=== PATIENT | female | born 1975 | race Caucasian/White ===

== ENCOUNTER → 2018-03-28 02:40 | Outpatient (CLI) | payer BC, SELFPAY ==
[2018-03-28 08:32] LABS: Ferritin 20 ng/mL (8-388); TSH 2.43 uIU/mL (0.358-3.74)
== END ==
PROVIDERS: PCP Emergency Medicine; Visit Provider Emergency Medicine
DX: L65.9 Nonscarring hair loss, unspecified (principal)
CPT/HCPCS: 36415; 82728; 84443

== ENCOUNTER 2018-08-19 14:14 | Outpatient (REF) | payer BC, SELFPAY ==
--- NOTE | 2018-08-19 13:30 | PAPFT_PTH ---
PATIENT: Fina Burnham LOC: [facility] U#:[id number] AGE/SX: 43/F ROOM: RE08/19/[address]: MAUREEN Hernandez : 1975 BED: DIS: 08/19/2018 SPEC #: [id number] RECD: 08/19/18 17:32 STATUS: ANATOLY REReuben #: [id number] SURINDER: 08/19/18 13:[address]: Dari Simmons DEPT: [facility] Cytology RECD BY: Dionne Vitale ENTERED: 08/19/18 17:32 SP TYPE: PAPFT OTHR DR: Gabino Ignacio, Tissues: 1 - CX/ENDOCX FOR PAP SMEARS Procedures: PAP THIN PREP/[facility] Screening HPV DNA PROBE Comments: [id number]
== END 2018-08-19 14:34 ==
LOC: LBN 14:14
PROVIDERS: PCP Emergency Medicine; Visit Provider Nurse Practitioner Family
DX: Z12.4 Encounter for screening for malignant neoplasm of cervix (principal); Z11.51 Encounter for screening for human papillomavirus (HPV)
CPT/HCPCS: 88142; 87624

== ENCOUNTER 2020-11-09 09:01 | Outpatient (CLI) | payer OTHER, SELFPAY ==
[2020-11-10 18:00] LABS: COVID-19 RT-PCR UVMMC Result Negative (Negative)
== END 2020-11-09 09:02 | disposition home or self-care (01) ==
PROVIDERS: PCP Emergency Medicine; Visit Provider Emergency Medicine
DX: Z20.822 Contact with and (suspected) exposure to COVID-19 (principal)
CPT/HCPCS: U0003

== ENCOUNTER 2022-05-02 03:03 | Outpatient (CLI) | payer BC, SELFPAY ==
[2022-05-02 08:35] LABS: Calculated LDL 94 mg/dL (<100); Cholesterol 194 mg/dL (<200); HDL Cholesterol 91 mg/dL (40-60); Triglyceride 47 mg/dL (<150)
[2022-05-03 10:09] LABS: HIV-1/2 Ag & Ab Screen Negative (Negative)
[2022-05-03 10:26] LABS: Hepatitis C Ab w Rflx HCV PCR Negative (Negative)
== END 2022-05-02 03:04 | disposition home or self-care (01) ==
LOC: LBO 03:03
PROVIDERS: PCP Family Medicine; Visit Provider Family Medicine
DX: Z00.00 Encounter for general adult medical examination without abnormal findings (principal); Z13.220 Encounter for screening for lipoid disorders; Z11.4 Encounter for screening for human immunodeficiency virus [HIV]; Z11.59 Encounter for screening for other viral diseases
CPT/HCPCS: 36415; 80061; 86803; 87389

== ENCOUNTER → 2023-03-22 03:05 | Outpatient (CLI) | payer BC, SELFPAY ==
--- NOTE | 2023-03-22 13:36 | DI.RAD_ITS ---
Exam(s) XR CHEST 2V PA LATERAL EXAM: XR CHEST 2V PA LATERAL CLINICAL HISTORY: cough,R05.3 TECHNIQUE: 2D digital imaging was performed. COMPARISON: No exams were available for comparison FINDINGS: HEART: Normal size. Aorta: Not dilated. PULMONARY VASCULATURE: Normal. LUNGS: Clear. PLEURAL SPACE: No pleural effusion or pneumothorax. BONE:Unremarkable for age. Mild pectus excavatum deformity. IMPRESSION: No acute abnormality. DATA REPOSITORY: RADIATION DOSE DELIVERED:
== END ==
PROVIDERS: PCP Family Medicine; Visit Provider Family Medicine
DX: R05.3 Chronic cough (principal)
CPT/HCPCS: 71046

== ENCOUNTER 2023-05-24 13:38 | Outpatient (CLI) | payer BC, SELFPAY ==
[2023-05-24 13:38] LABS: HCT 39.6 % (36.0-46.0); HGB 12.6 g/dL (11.2-15.7); MCH 28.1 pg (27.0-33.0); MCHC 31.8 % (32.0-36.0); MCV 88 fL (80-95); MPV 9.5 fL (8.0-11.0); Platelet Count 346 10^3/uL (130-400); RBC 4.48 10^6/uL (3.93-5.22); RDW 13.2 % (11.7-14.6); RDW-SD 42.7 fL
[2023-05-24 15:15] LABS: ALT 23 U/L (14-59); AST 15 U/L (15-37); Albumin 4.2 g/dL (3.4-5.0); Alkaline Phosphatase 50 U/L (46-116); Anion Gap 11.3 mmol/L (3-11); BUN 8 mg/dL (7-18); Bilirubin, Total 0.2 mg/dL (0.2-1.0); CO2 26.7 mmol/L (21.0-32.0); CREATININE 0.7 mg/dL (0.55-1.02); Calcium 9.3 mg/dL (8.5-10.1); Chloride 104 mmol/L (98-107); Estimated GFR 106.62 (mL/min/1.73m2); Glucose 90 mg/dL (74-106); Potassium 3.9 mmol/L (3.5-5.1); Sodium 142 mmol/L (136-145); Total Protein 8.2 g/dL (6.4-8.2)
== END 2023-05-24 13:39 | disposition home or self-care (01) ==
LOC: LBO 13:39
PROVIDERS: PCP Family Medicine; Visit Provider Surgery
DX: R05.3 Chronic cough (principal); F41.9 Anxiety disorder, unspecified; K58.9 Irritable bowel syndrome, unspecified
CPT/HCPCS: 36415; 80053; 85027

== ENCOUNTER 2023-07-10 12:24 | Day surgery (SDC) | payer BC, SELFPAY ==
--- NOTE | 2023-07-09 20:27 | HPE_ITS ---
Date of service: 07/10/23 Time of Service: 13:26 Assessment and Plan Assessment and plan (1) Irritable colon: (2) Panic disorder: (3) Screening for malignant neoplasm of colon performed: Status: Acute (4) Colon cancer screening: Status: Acute Assessment and plan: Plan: Colonoscopy w/ general & natural airway. Informed consent is obtained for the procedural (explained in simple layman's terms that?the pt and/or family could understand) explaining risks vs benefits and alternatives to the procedure and consequences if we do not do the procedure and need/rational for the procedure. Risks include but are not limited to: bleeding, infection, perforation of colon.? This would necessitate emergency surgery to repair the damage w/ possible ostomy; and other associated complications w/ the required surgery. ? Also complications of anesthesia including aspiration, PR/CVA/, inability to complete the procedure. I discussed with the?patient would they could expect during the procedure, post procedure and recovery time and risks.? The patient understands that they need to have a ride home after the procedure.? History of Present Illness Narrative: Patient is here today for colonoscopy for CRC screening.??? They completed a bowel prep with just a clear yellow residual effluent.? They not having any chest pain or shortness of breath, currently.? They are not experiencing any fever or chills.? They deny any productive cough or upper respiratory tract infection signs or symptoms.? They are not having abdominal pain, or nausea and vomiting.? They have not had any changes in medications, past medical history or past surgical history since previously being seen in the office. They have not had any accidents or have been in the ER since the clinic pre-operative evaluation. ??I reviewed the procedure with the patient today, including risks and benefits of the procedure, and what they could expect at home for recovery.? All questions are answered to the patient?s satisfaction today, and they are stable to proceed with the proposed procedure. Pt seen at the request of PCP regarding colon cancer screening. Pt has never had colon cancer screening before.? They denies problems with constipation or diarrhea.? They deny any pain or difficulty with bowel movements, or rectal bleeding.? There is no family history of any colon cancer.? Pt has not had any unexplained weight loss.? Their appetite is good.? ?They deny heart, lung, or kidney problems. They are not having heartburn or indigestion. They have not had any prior colo-rectal surgery.? The patient has not had a prior CARLOS.? They deny any problems with anesthesia in the past. Anesthesia: general (without airway) Previous surgical intolerances: No Previous surgical complications: No Pulmonary risk factors: Planned procedure: Yes Sleep apnea risks: No COPD/Asthma/Smoker: no Can climb one flight of stairs (12-13 steps) in less than 30 seconds without stopping and without symptoms: Yes The surgery proposed for this patient is: low risk Active cardiac conditions: none Active risk factors: none ASA (acetylsalicylic acid): not used Beta blockers: not used Kidneys: no concerns DM: no ?PSHx: CE ORIF arm Anesthesia Review of Systems All systems reviewed & are unremarkable except as noted in HPI and below PFSH All Active Problems Colon cancer screening (Acute) Screening for malignant neoplasm of colon performed (Acute) Chronic cough (Chronic) Anxiety (Acute) Medical History Hx of fracture of arm History of cervical dysplasia (1994) History of fracture of skull as a child, no complications Panic disorder (05/30/11) Irritable colon Surgical History S/P LEEP (1994) Colonoscopy - [facility] [place] 02/2010 Family History Mother No problems noted. Social History Smoking/Tobacco Use Status: Former Tobacco Use tobacco type: cigarettes Quit Date: 08/06/02 Tobacco: How many years used: 20 Smoking risk assessment performed?: Yes Alcohol Intake: current Alcohol Intake frequency: a few times a month Drug use: Never Substance use type: does not use Caregiver/Support person: No Household members: spouse and children Housing: house Number of Children: 2 Do you need help understanding health information?: Never current occupation: works in an office. Pets and animals: Yes Pets and animals: dog(s) Sexually active: No Do you think of yourself as: straight/heterosexual Current gender identity: female What is your relationship status?: How often do you talk on the phone with friends or family?: three or more times per week How often do you get together with friends or relatives?: twice per week How often do you attend faith or confucianist services?: 1-3 times per year Do you belong to any clubs or organized social groups?: yes Panel score (0-1 are the most socially isolated patients): 3 What type of physical activity do you participate in: bicycling Duration: 30-45 minutes/day Frequency: 1-2 times per week Kelly/Nondenominational: Zoroastrianism Seatbelt use: always Helmet use: No Drive intox or ride w/intox 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 Do you feel safe at home: Yes Do you feel safe in your relationship?: Yes Female Reproductive History Menstrual control method: permanent sterilization (Vasectomy) History History 2 Para 2 Hx # Term Pregnancies Multiple births Hx # Pregnancies Ectopic pregnancies AB induced Hx Number of Living Children AB spontaneous Meds Allergies and Home Medications Allergies Allergy/AdvReac Type Severity Reaction Status Date / Time Sulfa (Sulfonamide Allergy Intermediate RASH Verified 07/10/23 12:54 Antibiotics) guaifenesin Allergy Unknown SOB Verified 07/10/23 12:54 phenylephrine Allergy Unknown SOB Verified 07/10/23 12:54 phenylpropanolamine Allergy Unknown Verified 07/10/23 12:54 Corticosteroids AdvReac MAKES HER Verified 07/10/23 12:54 (Glucocorticoids) HYPER Home Medications Medication Instructions Recorded Confirmed Type lorazepam 0.5 mg tablet 0.5 mg PO BID PRN anxiety #30 tabs 01/11/23 07/10/23 Rx valacyclovir 1 gram tablet 1,000 mg PO ONCE PRN 03/09/23 07/10/23 History multivitamin 1 tab PO DAILY 05/24/23 07/10/23 History Exam Narrative Exam Narrative: PHYSICAL EXAM GENERAL APPEARANCE: Alert, healthy appearance, oriented, x 3,? in no acute distress HYDRATION: Well hydrated HEAD, EYES, EARS, NECK, THROAT: Head is normocephalic, pupils equal, round, reactive to light and accommodation, ocular movement intact, sclera clear and no jaundice. ?Dentition intact. LUNGS: normal respiration/normal chest excursion. ?Clear to auscultation bilaterally. ?No wheeze. ?HEART: Regular rate and rhythm. no murmurs ABDOMEN: soft and non-tender to palpation.? Normal bowel sounds. Time Spent Time spent with Patient: <40 minutes Time was spent: preparing to see the patient(eg.review tests), obtaining and/or reviewing separately otained hiistory, ordering medications,tests, procedures, referring, communicating with other health sub acute care nurse, indepentently interpreting results, counseling the patient and care coordination
--- NOTE | 2023-07-09 20:35 | W.PM.DSUDISC ---
Date of service: 07/10/23 Time of Service: 14:13 Discharge Plan Disposition Patient Disposition: Home Condition: Good Discharge Details Reason For Visit: colon scope Attending Provider: Chloé Poon Primary Care Provider: Skylar De Leon Home Meds and New Rx's Prescriptions: Continued multivitamin Tablet 1 tab PO DAILY valacyclovir 1 gram tablet 1,000 mg PO ONCE PRN Patient Comments: TAKE ONE TABLET BY MOUTH TWICE A DAY FOR 7 DAYS lorazepam 0.5 mg tablet 0.5 mg PO BID PRN (Reason: anxiety) Qty: 30 1RF Discontinued polyethylene glycol 3350 17 gram/dose powder 238 g PO ONCE Qty: 238 0RF Rx Instructions: take per colonoscopy instructions bisacodyl [Dulcolax (bisacodyl)] 5 mg tablet,delayed release (DR/EC) 5 mg PO ONCE Qty: 4 0RF Rx Instructions: take per colonoscopy instructions Discharge Instructions Additional Instructions: DSU Colonoscopy Post-Op Instructions Instructions for Everyone who is given Anesthesia: For your safety, please do the following for the next twenty-four (24) hours: *Do Not operate a motor vehicle (car, truck, motorcycle, etc.) *Do Not drink alcoholic beverages or use any recreational drugs for the first 24 hours or while taking pain medications. The medications in your body may have a reaction that can be dangerous. *Do Not make any important decisions or sign any important papers. Findings: Moderate diverticula of the sigmoid colon. Make sure you are moving your bowels on a regular basis and not straining to go to the bathroom. If you find you are having issues with constipation/straining, that is recommended that you start a fiber supplement such as Metamucil. X1 small polyp Follow up: My office will send you a letter in 2 to 3 weeks time with the results of the pathology and when we want you to repeat your colonoscopy. 1. No lifting over 20 pounds or strenuous activity for the first 24 hours after your procedure. After 24 hours there are no restrictions on your activity but you may feel fatigued for a few days. 2. After you arrive home you may have a light meal and return to your normal diet as you can tolerate it without feeling sick to your stomach. 3. You may have a bloated, gaseous feeling in your belly (abdomen) after a colonoscopy. Passing gas and belching will help. Walking or lying down on your left side with your knees flexed may relieve the discomfort. Call the office at [phone] (Office) or [phone] (Hospital) right away if you notice any of the following: a.Vomiting of blood or ?coffee ground stools?. b.Rectal bleeding 1Tbsp, blood clots or continuous bleeding. c.Severe belly (abdominal) pain. d.A hard distended belly (abdomen) and an inability to pass gas. 4. Please don?t expect to have a normal BM (bowel movement) for 2-3 days after your procedure. 5. If there are questions regarding the findings of your procedure, please contact your doctor 6. If you are unable to contact your doctor with a problem, contact the hospital at [phone]. 7. Continue all your regular medications unless directed otherwise. I understand the above instructions and have no questions. Signature of Patient or Adult Escort Name of Responsible Adult Escort Signature of Nurse Date/Time Activity:: see above Diet:: see above Discharge Orders Discharge Orders: Discharge Order (Routine); Ordered 07/10/23 Ordered By: Chloé Poon DS: Diagnosis Discharge Diagnosis (1) Irritable colon: (2) Panic disorder: (3) Screening for malignant neoplasm of colon performed: Status: Acute Asessment and Plan: Post [place] Note/Eval The patient is seen and examined after their colonoscopy.? The patient has been able to pass gas.? They are not having abdominal pain.? They have been able to tolerate liquids and a snack.? They do not have any nausea or vomiting.? They are not having any chest pain or shortness of breath.??? They are not having any rectal bleeding. Their vital signs have been stable-see nursing notes. We discussed findings during their colonoscopy, and any biopsies that were done/polyps that were removed. The patient will be sent a letter with any biopsy results, and when to repeat the colonoscopy.-see discharge instructions. Patient was given explicit instructions to follow-up regarding colonoscopy-refer to discharge instructions.? We reviewed resumption of medications. Patient verbalized understanding and discharged in stable and satisfactory condition- See nursing notes. (4) Diverticula of colon: Status: Acute
--- NOTE | 2023-07-10 12:20 | W.ANESPRE ---
General Info Date of Service Date Performed: 07/10/23 Height: 5 ft 3 in Weight: 58.74 kg Body Mass Index (BMI): 22.9 Surgical Procedure: Operation Date: 07/10/23 12:20 Proposed Procedure Side Surgeon qing Poon, DO Meds Allergies and Home Medications Allergies Allergy/AdvReac Type Severity Reaction Status Date / Time Sulfa (Sulfonamide Allergy Intermediate RASH Verified 07/10/23 12:54 Antibiotics) guaifenesin Allergy Unknown SOB Verified 07/10/23 12:54 phenylephrine Allergy Unknown SOB Verified 07/10/23 12:54 phenylpropanolamine Allergy Unknown Verified 07/10/23 12:54 Corticosteroids AdvReac MAKES HER Verified 07/10/23 12:54 (Glucocorticoids) HYPER Home Medication Medication Instructions Recorded lorazepam 0.5 mg tablet 0.5 mg PO BID PRN anxiety #30 tabs 01/11/23 valacyclovir 1 gram tablet 1,000 mg PO ONCE PRN 03/09/23 multivitamin 1 tab PO DAILY 05/24/23 Current Visit Medications: Current Medications Generic Name Dose Route Start Last Admin Trade Name Freq PRN Reason Stop Dose Admin Hyoscyamine Sulfate 0.125 mg 07/10/23 02:52 Hyoscyamine 0.125 Mg Sl/Oral/Chew SL 08/09/23 02:51 DIRECTED PRN Ringer's Solution 1,000 mls @ 80 mls/hr 07/10/23 06:00 IV 07/10/23 23:59 INFUSION [facility] IV Miscellaneous Supplies 1 each 07/10/23 06:00 Iv Access IV 07/10/23 23:59 DIRECTED EMILIE Ondansetron HCl 4 mg 07/10/23 02:52 Ondansetron 4 Mg/2 Ml Vial IVP 08/09/23 02:51 Q4H PRN PRN Nausea / Vomiting Sodium Chloride 0 ml 07/10/23 06:00 Normal Saline Flush 10 Ml Syr IV 07/10/23 23:59 PRN PRN Sodium Chloride 0 ml 07/10/23 06:00 Normal Saline 10 Ml Vial IJ 07/10/23 23:59 DIRECTED PRN Sterile Water 0 ml 07/10/23 06:00 Water,Injection,Sterile 10 Ml Vial IJ 07/10/23 23:59 DIRECTED PRN PFSH Active Problems Active Problems: Problem Status Onset Code Colon cancer screening Z12.11 Screening for malignant neoplasm of colon performed Z12.11 Chronic cough R05.3 Anxiety Medical History Medical History Hx of fracture of arm History of cervical dysplasia (1994) History of fracture of skull as a child, no complications Panic disorder (05/30/11) Irritable colon Surgical History Surgical History S/P LEEP (1994) Colonoscopy - [facility] 02/2010 Tobacco Smoking/Tobacco Use Status: Former Tobacco Use Passive smoking exposure: Yes Alcohol Alcohol Intake: current Alcohol intake frequency: a few times a month Substance Use Substance use: Never Substance use type: does not use Prental History History 2 Para 2 Hx # Term Pregnancies Multiple births Hx # Pregnancies Ectopic pregnancies AB induced Hx Number of Living Children AB spontaneous Vital Signs and Lab Results Vital Signs Most Recent Vital Signs in EMR: Temp Pulse Resp BP Pulse Ox 37 C 90 16 118/64 96 07/10/23 12:35 07/10/23 12:35 07/10/23 12:35 07/10/23 12:35 07/10/23 12:35 Lab Results Blood Type / Crossmatch: No Data to Display Complete Blood Count: No Data to Display Complete Metabolic Panel: No Data to Display Liver Function Panel: No Data to Display Coagulation Panel: No Data to Display Cardiac Panel: No Data to Display Arterial Blood Gas: No Data to Display Venous Blood Gas: No Data to Display Pancreas Panel: No Data to Display Thyroid Panel: No Data to Display Infectious Disease: No Data to Display Blood Cultures: No Data to Display Toxicology Panel: No Data to Display Panel: No Data to Display Anesthesia Assessment and Plan Anesthesia History Personal History: No History of Anesthesia Complications Family History: No Family History of Anesthesia Complications Exercise Tolerance Exercise Tolerance: Metabolic Equivalents>4 Cardiac & Pulmonary Exam Cardiac Exam: Normal S1/S2 Heart Sounds Pulmonary Exam: Clear Bilateral Breath Sounds Implantable Cardiac Device Does patient have a Pacemaker or an ICD?: No Airway Exam Known Difficult Airway: No Mallampati Class: 2 Mouth Opening: Normal (> 3cm) Thyromental Distance: Greater than 3 cm Neck Range of Motion: Full ROM Neck Circumference: Normal Teeth Condition: Normal Dentition ASA Classification ASA Score: ASA 2 Emergency Case?: No NPO Status NPO Status: NPO Clears >2 hours, Solids >8 hours Status Status: Negative HCG Anesthesia Plan Resuscitation Status: Full Code Anesthesia Technique: General Anesthesia Airway Planned: Natural Airway Monitors Used: Standard Monitors Preoperative Comments:: 48 yo female for colo. Sig PMHx: chronic cough, panic disorder/anxiety, former smoker, occ EtOH.
[2023-07-10 12:35] VITALS: BP 118/64; PULSE 90; RESP 16; TEMP 37; O2SAT 96
[2023-07-10 13:01] VITALS: BMI 22.9
[2023-07-10] MEDS: Lactated Ringers 1,000 ML 80 ML IV (13:10)
--- NOTE | 2023-07-10 13:28 | W.COLOREPORT ---
Date of service: 07/10/23 Time of Service: 13:28 Colonoscopy Report Date of procedure: 07/10/23 Pre-op diagnosis general: crc screening Post-op diagnosis procedure note: same (Diverticula and rectal polyp) Surgeon: Chloé Poon Anesthesia Type: General LMA/ETT Estimated blood loss (mL): 1 Complications: None Disposition: same day Prep: Miralax/Dulcolax Retraction Time: 8 Procedure Description: After informed consent was obtained the patient was taken to the procedure room and placed in a left decubitous position. Monitors were applied and a time out was done. The patients name, date of , procedure, allergies to medications and metal in their body was reviewed. The patient was then sedated. Once sedated and comfortable a rectal exam was done. External exam was normal. Internal exam revealed a normal sphincter tone and no palpable masses. The scope was then introduced and retrofelexed. No internal hemorrhoids were identified. The scope was then advanced to the cecum without difficulty. The TI and appendiceal orifice were identified. The prep was BBPS 3 in all segments for total of 9. The scope was then slowly retracted over 8 minutes back into the rectum. She has a flat 0.5 cm polyp in the rectum that is removed with a cold biting forcep. All specimen is retrieved and no bleeding is noted. She has a few large mouth diverticula confined to the sigmoid colon. There is no signs of active bleeding or infection the scope was removed and the patient was woken up and taken back to Same day surgery in stable condition. The patient tolerated the procedure well and there were no immediate complications. Follow up: The patient should follow up in 7-10 years, path pending, unless they develop changes in bowel habits or other new gastrointestinal complaints.
--- NOTE | 2023-07-10 13:59 | BOWEL_PTH ---
PATIENT: Fina Burnham LOC: [facility] U#:[id number] AGE/SX: 48/F ROOM: RE07/10/[address]: Chloé Poon : 1975 BED: DIS: 07/10/2023 SPEC #: [id number] RECD: 07/10/23 16:39 STATUS: ANATOLY REQ #: [id number] SURINDER: 07/10/23 13:[address]: Chloé Poon DEPT: Surgical Specimen RECD BY: Dionne Vitale ENTERED: 07/10/23 16:39 SP TYPE: Bowel OTHR DR: Skylar De Leon Tissues: 1 - BIOPSY BOWEL Procedures: GROSS AND MICRO LEVEL 4 Comments: [id number]
[2023-07-10 14:05] VITALS: BP 105/53; PULSE 71; RESP 16; TEMP 36.5; O2SAT 97
[2023-07-10 14:40] VITALS: BP 96/57; PULSE 67; RESP 16; TEMP 36.3; O2SAT 98
--- NOTE | 2023-07-10 14:40 | W.ANESPOSTOP ---
Postoperative Evaluation Date, Time and Location Date Performed: 07/10/23 Time Performed: 14:06 Patient Location: Day Surgery Unit Vital Signs Most Recent Imported Vital Signs: Most Recent Vital Signs Temp Pulse Resp BP Pulse Ox 36.5 C 71 16 105/53 L 97 07/10/23 14:05 07/10/23 14:05 07/10/23 14:05 07/10/23 14:05 07/10/23 14:05 Pain Score Most Recent Pain Score: Most Recent Pain Score Pain Level 0 07/10/23 14:05 Assessment Mental Status: Awake (Alert & Oriented to Patient Baseline) Airway and Respiratory Function: Patent airway with normal (patient baseline) respiratory exam Cardiovascular Function: Hemodynamically Stable Hydration Status: Adequately Hydrated Nausea & Vomiting: No Nausea or Vomiting Pain: Pt. Denies Any Pain Peripheral Nerve Block: Patient did not receive a nerve block
== END 2023-07-10 15:05 | disposition home or self-care (01) ==
LOC: SUR 12:24
PROVIDERS: PCP Family Medicine; Visit Provider Surgery
PROC: 0DJD8ZZ Inspection of Lower Intestinal Tract, Via Natural or Artificial Opening Endoscopic (ICD-10-PCS; CPT 45378; principal; 2023-07-10 12:15)
DX: Z12.11 Encounter for screening for malignant neoplasm of colon; K63.5 Polyp of colon; K57.30 Diverticulosis of large intestine without perforation or abscess without bleeding
CPT/HCPCS: 45380; 88305

== ENCOUNTER 2023-09-18 15:37 | Outpatient (REF) | payer BC, SELFPAY ==
--- NOTE | 2023-09-18 15:29 | PAPFT_PTH ---
PATIENT: Fina Burnham LOC: [facility] U#:[id number] AGE/SX: 48/F ROOM: RE09/18/[address]: Cassie Zapata MD : 1975 BED: DIS: 09/18/2023 SPEC #: [id number] RECD: 09/18/23 17:53 STATUS: ANATOLY REQ #: [id number] SURINDER: 09/18/23 15:[address]: Cassie Zapata DEPT: [facility] Cytology RECD BY: Dionne Vitale ENTERED: 09/18/23 17:54 SP TYPE: PAPFT ROLA DR: Skylar De Leon Tissues: 1 - CX/ENDOCX FOR PAP SMEARS Procedures: PAP THIN PREP/[facility]VM Screening HPV DNA PROBE Comments: [id number]
== END 2023-09-18 15:38 | disposition home or self-care (01) ==
LOC: LBN 15:37
PROVIDERS: PCP Family Medicine; Visit Provider Obstetrics & Gynecology
DX: Z12.4 Encounter for screening for malignant neoplasm of cervix (principal); Z11.51 Encounter for screening for human papillomavirus (HPV)
CPT/HCPCS: 88142; 87624

== ENCOUNTER 2025-05-08 04:12 | Outpatient (CLI) | payer OTHER, SELFPAY ==
--- NOTE | 2025-05-08 06:00 | DI.MRI_ITS ---
Exam(s) MR BRAIN WO/W EXAM: MR BRAIN WO/W CLINICAL HISTORY: LT eye headache,new and acute,R51.9 TECHNIQUE: Multiplanar multisequence MRI of the brain was performed. Both noninfused and contrast infused sequences were performed. IV Contrast injected was 12 cc Dotarem. COMPARISON: No exams were available for comparison FINDINGS: CEREBRAL PARENCHYMA: No evidence of intracranial hemorrhage, mass effect nor shift of midline structure. No extraaxial fluid collections. Ventricles are not enlarged nor shifted. There is no significant focal signal abnormality in the cerebellar hemispheres nor within the ramon, midbrain, and thalami. There is no abnormal signal abnormality in the periventricular white matter. There is no evidence of demyelinating disease. DWI: No areas of restricted diffusion to suggest acute ischemic event. SWI: No microhemorrhages evident. There are no ring enhancing lesions in the brain. There is no abnormal meningeal enhancement. PITUITARY GLAND: No mass nor parasellar abnormality. No obvious abnormality in the cavernous sinuses. FLOW VOIDS: The expected flow void are noted. No evidence of obvious aneurysm nor obvious vascular malformation. PARANASAL SINUSES: The visualized paranasal sinuses appear unremarkable. ORBITS: No obvious abnormal findings. Optic chiasm appears unremarkable. IMPRESSION: 1. No significant intracranial findings on this MRI scan of the brain. 2. No abnormal enhancing intracranial findings. There are no ring enhancing lesions in the brain and there is no abnormal meningeal enhancement. DATA REPOSITORY:
[2025-05-08] MEDS: Gadoterate meglumine 20 ML SYRINGE IVP (08:02)
[2025-05-08] MEDS: Normal Saline Flush 10 ML SYR IVP (08:03)
== END 2025-05-08 04:32 ==
LOC: DI 04:13
PROVIDERS: PCP Family Medicine; Visit Provider Family Medicine
DX: R51.9 Headache, unspecified (principal)
CPT/HCPCS: 70553

== ENCOUNTER 2025-05-19 08:17 | Outpatient (REF) | payer OTHER, SELFPAY ==
--- NOTE | 2025-05-19 08:15 | SKI_PTH ---
PATIENT: Fina Burnham LOC: [facility] U#:[id number] AGE/SX: 49/F ROOM: RE05/19/[address]: Viridiana Campos : 1975 BED: DIS: 05/19/2025 SPEC #: [id number] RECD: 05/19/25 13:03 STATUS: ANATOLY REReuben #: [id number] SURINDER: 05/19/25 08:[address]: Viridiana Campos DEPT: Surgical Specimen RECD BY: Keri Acosta ENTERED: 05/19/25 13:07 SP TYPE: KINZA CANELA DR: Skylar De Leon Tissues: 1 - SKIN CYST/TAG/DEBRIDEMENT Procedures: GROSS AND MICRO LEVEL 3 Comments: [id number]
== END 2025-05-19 08:18 | disposition home or self-care (01) ==
LOC: LBN 08:17
PROVIDERS: PCP Family Medicine; Visit Provider Student in an Organized Health Care Education/Training Program
DX: L72.9 Follicular cyst of the skin and subcutaneous tissue, unspecified (principal)
CPT/HCPCS: 88304